=== PATIENT | male | born 2000 | race Two or more races ===

== ENCOUNTER 2022-09-29 14:35 | Emergency (ER) | payer MEDICAID, OTHER ==
[2022-09-29 15:50] LABS: Basophils # (auto) 0 10 ^3/uL (0-0.2); Basophils % (auto) 0.1 % (0.0-2.0); Eosinophils # (auto) 0 10 ^3/uL (0-0.8); Eosinophils % (auto) 0.3 % (0.0-7.0); Hematocrit 48.1 % (41.0-53.0); Hemoglobin 16.7 g/dL (13.5-17.5); Lymphocytes # (auto) 0.7 10 ^3/uL (0.4-5.4); Lymphocytes % (auto) 4.2 % (10.0-50.0); Mean Corpuscular Hemoglobin 30.8 pg (28.0-32.0); Mean Corpuscular Hgb Conc. 34.7 g/dL (32.0-36.0); Mean Corpuscular Volume 88.9 fL (80.0-100.0); Monocytes # (auto) 0.7 10 ^3/uL (0-1.3); Monocytes % (auto) 3.8 % (0.0-12.0); Neutrophils # (auto) 15.9 10 ^3/uL (1.6-8.6); Neutrophils % (auto) 91.6 % (37.0-80.0); Nucleated Red Blood Cells % 0.1 %; Red Blood Cells 5.41 10^6/uL (4.5-5.90); Red Cell Distribution Width 13.4 % (11.8-14.3); White Blood Cell 17.3 10^3/uL (4.4-10.8)
[2022-09-29 16:05] LABS: Albumin 4.4 g/dL (3.4-5.0); Calcium 9.3 mg/dL (8.5-10.1); Potassium 4.4 mmol/L (3.5-5.1)
[2022-09-29 16:10] LABS: BUN/Creatinine Ratio 18.8; Bilirubin, Total 0.7 mg/dL (0.2-1.0); Total Protein 8.2 g/dL (6.4-8.2)
[2022-09-29] MEDS ORDERED: MAALOX PLUS or MAALOX 30 ML PO ONE (17:00)
[2022-09-29] MEDS ORDERED: DONNATAL 5ml ORAL Elix (BELLADONNA ALK-PHENOBARB) PO ONE (17:00)
[2022-09-29] MEDS ORDERED: LIDOCAINE VISCOUS 2% 15ML UD PO ONE (17:00)
[2022-09-29] MEDS ORDERED: PANT40TA2 PO (17:57)
[2022-09-29 18:29] VITALS: BP 116/76
== END 2022-09-29 18:30 | disposition home or self-care (01) ==
LOC: ER 14:35
DX: K29.70 Gastritis, unspecified, without bleeding (principal)
CPT/HCPCS: 36415; 74176; 80053; 85025

== ENCOUNTER 2023-01-22 14:48 | Emergency (ER) | payer MEDICAID ==
[~2023-01-22] VITALS: Ht 165.1 cm; Wt 65.1 kg
[~2023-01-22 14:48] MED LIST: PANT40TA2 PO
[2023-01-22 15:04] VITALS: BP 107/74
[2023-01-22 15:56] LABS: Urine Bacteria NONE SEEN /hpf (None Seen); Urine Blood Negative /uL (Negative); Urine Specific Gravity 1.022 (1.001-1.035); Urine WBC <1 /hpf (0 - 3)
[2023-01-22] MEDS ORDERED: MAALOX PLUS or MAALOX 30 ML PO ONE (16:15)
[2023-01-22 16:44] LABS: Basophils # (auto) 0 10 ^3/uL (0-0.2); Basophils % (auto) 0.3 % (0.0-2.0); Eosinophils # (auto) 0.2 10 ^3/uL (0-0.8); Eosinophils % (auto) 2.8 % (0.0-7.0); Hematocrit 46.2 % (41.0-53.0); Hemoglobin 15.7 g/dL (13.5-17.5); Lymphocytes # (auto) 1.7 10 ^3/uL (0.4-5.4); Lymphocytes % (auto) 27.7 % (10.0-50.0); Mean Corpuscular Hemoglobin 30.5 pg (28.0-32.0); Mean Corpuscular Hgb Conc. 34.1 g/dL (32.0-36.0); Mean Corpuscular Volume 89.5 fL (80.0-100.0); Monocytes # (auto) 0.6 10 ^3/uL (0-1.3); Monocytes % (auto) 10.2 % (0.0-12.0); Neutrophils # (auto) 3.7 10 ^3/uL (1.6-8.6); Nucleated Red Blood Cells % 0.3 %; Red Blood Cells 5.16 10^6/uL (4.5-5.90); Red Cell Distribution Width 13.4 % (11.8-14.3); White Blood Cell 6.2 10^3/uL (4.4-10.8)
[2023-01-22 17:21] LABS: Calcium 8.9 mg/dL (8.5-10.1); Potassium 4.4 mmol/L (3.5-5.1)
[2023-01-22 17:24] LABS: BUN/Creatinine Ratio 17.2 (10.0-20.0); Bilirubin, Total 0.4 mg/dL (0.2-1.0); Total Protein 8.3 g/dL (6.4-8.2)
[2023-01-22] MEDS ORDERED: DICY10CA PO (17:50)
== END 2023-01-22 18:02 | disposition home or self-care (01) ==
LOC: ER 14:48
DX: K29.70 Gastritis, unspecified, without bleeding (principal)
CPT/HCPCS: 36415; 74176; 80053; 81001; 83605; 83690; 85025